=== PATIENT | female | born 1995 | race Caucasian/White ===

== ENCOUNTER 2020-02-08 03:29 | Emergency (ER) | payer OTHER, SELFPAY ==
--- NOTE | ~2020-02-08 | XR_ITS ---
EXAMINATION: XR abdomen/kub 1V INDICATION: Constipation and upper abdominal pain TECHNIQUE: Supine views of the abdomen were obtained on 2 radiographs. COMPARISON: None FINDINGS: There are no dilated loops of bowel. No free intraperitoneal gas is identified. There is a moderate volume of colonic stool. IMPRESSION: 1. No radiographic correlate for the patient's symptoms. Reviewed, dictated and finalized at location A. [employer]
--- NOTE | ~2020-02-08 | CT_ITS ---
EXAMINATION: CT abdomen pelvis w con INDICATION: Upper abdominal pain TECHNIQUE: Computed tomographic images of the abdomen and pelvis were obtained after the administrati on of 100 cc of Omnipaque 350 intravenous contrast. The dose-length product (DLP) was 1515.41 mGy-cm. Automated exposure control and iterative reconstruction technique were employed. COMPARISON: None available FINDINGS: The lung bases are clear. The heart size is normal. The liver, spleen, pancreas, and adrena l glands are normal. There is mild distention of the otherwise normal-appearing gallbladder. The kidn eys are unremarkable. No pathologically enlarged abdominal or pelvic lymph nodes are identified. Ther e is no free intraperitoneal gas or evidence of bowel obstruction. The appendix is normal. IMPRESSION: 1. Mild gallbladder distention of unclear significance, otherwise unremarkable examination. Consider right upper quadrant ultrasound. Reviewed, dictated and finalized at location A. SEWER
[2020-02-08 03:35] VITALS: BP 156/100; PULSE 94; RESP 14; TEMP 36.8; O2SAT 100
--- NOTE | 2020-02-08 03:45 | ED.ABDPAIN ---
HPI - Abdominal Pain General Chief Complaint: Abdominal Pain Stated Complaint: belly pain Time Seen by Provider: 02/08/20 03:45 History of Present Illness HPI narrative: Severe constant abdominal pain since 2100 last night. Associated with nausea and vomiting x1. She also feels constipaed. Sh has had simiar symtppoms in the past, but they usually resolve on their own. She tried tylenol without relief. Related Data Allergies Allergy/AdvReac Type Severity Reaction Status Date / Time No Known Allergies Allergy Verified 02/18/20 12:13 Review of Systems Review of Systems: All systems reviewed & are unremarkable except as noted in HPI and below Constitutional: Constitutional: Denies chills and Denies fever(s) Cardiovascular: Cardiovascular: Denies chest pain Respiratory: Respiratory: Denies dyspnea Gastrointestinal: Gastrointestinal: Reports abdominal pain, Reports constipation, Reports nausea and Reports vomiting Genitourinary: Genitourinary: Denies hematuria, Denies nocturia and Denies dysuria Musculoskeletal: Musculoskeletal: Denies back pain Neurologic: Denies numbness and Denies weakness [facility] Past Medical History Medical History (Updated 02/09/20 @ 00:00 by Carolyn Avila) Healthy adult Social History Social History (Updated 02/08/20 @ 03:59 by Brett Jeffery MD) Smoking status: Never smoker Gender identity (if verbalized by the patient): Female Exam Const: General: healthy appearing, no acute distress and alert Nutritional Appearance: obese Orientation/consciousness: patient oriented x3 HENMT: Head: normal to inspection Neck: Neck: normal visual inspection and no lymphadenopathy Chest: Chest palpation & inspection: no tenderness Resp: Effort & Inspection: normal respiratory effort Auscultation: clear to auscultation bilaterally, no rales, no rhonchi and no wheezes Cardio: Jugular venous distension: no JVD Rate: regular rate Rhythm: regular rhythm Heart sounds: no murmurs GI: Inspection: non-distended GI Palp: Yes Soft to palpation, Yes Tenderness to palpation present (GI) (epigastric), No Guarding due to palpation present (GI) and No Rebound tenderness present Auscultation: normal bowel sounds Skin: General skin exam: normal color Neuro: General: patient oriented x3 and moves all extremities Speech: normal speech Extrem: General: no edema Psych: Appearance: well kempt Affect: normal affect Course Vital Signs Vital signs: Vital Signs Temperature 36.8 C 02/08/20 03:35 Pulse Rate 94 02/08/20 03:35 Respiratory Rate 14 02/08/20 03:35 Blood Pressure 156/100 H 02/08/20 03:35 Pulse Oximetry 100 02/08/20 03:35 Temperature 36.8 C 02/08/20 03:35 Pulse Rate 84 02/08/20 07:24 Respiratory Rate 16 02/08/20 07:24 Blood Pressure 132/92 H 02/08/20 07:24 Pulse Oximetry 98 02/08/20 07:24 MDM - Abdominal Pain MDM Narrative Medical decision making narrative: DD: GERD, constipation, biliary colic, other Exam benign. I will obtain KUB, labs, and reassess Medical Records Attestation: I reviewed the patient's medical records. Lab Data Attestation: I reviewed the patient's lab results. Result diagrams: 02/08/20 03:53 02/08/20 05:43 Labs: Lab Results 02/08/20 02/08/20 02/08/20 Range/Units 03:53 03:53 05:43 WBC 13.0 H (4.5-10.0) K/mm3 RBC 4.82 (4.2-5.4) M/mm3 Hgb 13.0 (12.0-15.0) g/dL Hct 40.2 (37.0-47.0) % MCV 83.4 (80-100) fl MCH 27.0 (26-34) pg MCHC 32.3 (32-36) g/dl RDW 14.1 (11.5-14.5) % Plt Count 390 H (150-375) k/mm3 MPV 10.1 (7.4-10.4) fl Immature Gran % (Auto) 0.2 (0-0.5) % Neut % (Auto) 77.8 H (45.5-73.1) % Lymph % (Auto) 16.6 L (18.3-44.2) % [place] % (Auto) 3.7 (2.6-8.5) % Eos % (Auto) 1.3 (0-4.4) % Baso % (Auto) 0.4 (0.2-1.2) % Lymph # (Auto) 2.15 (0.9-3.2) K/mm3 [place] # (Auto) 0.5 (0.1-0.6) K/mm3 Eos # (Auto
--- NOTE | 2020-02-08 04:03 | PC.NURSE ---
Pt. to XR
[2020-02-08 04:11] LABS: Basophils Absolute Auto 0.1 K/mm3 (0.0-0.1); Basophils Percent Auto 0.4 % (0.2-1.2); Eosinophils Absolute Auto 0.2 K/mm3 (0-0.3); Eosinophils Percent Auto 1.3 % (0-4.4); Hematocrit 40.2 % (37.0-47.0); Immature Granulocyte Absolute 0.03 K/mm3 (0.00-0.031); Immature Granulocyte Percent A 0.2 % (0-0.5); Lymphocytes Absolute Auto 2.15 K/mm3 (0.9-3.2); Lymphocytes Percent Auto 16.6 % (18.3-44.2); Mean Corpuscular HGB Conc 32.3 g/dl (32-36); Mean Corpuscular Volume 83.4 fl (80-100); Mean Platelet Volume 10.1 fl (7.4-10.4); Monocytes Absolute Auto 0.5 K/mm3 (0.1-0.6); Monocytes Percent Auto 3.7 % (2.6-8.5); Neutrophils Absolute Auto 10.1 K/mm3 (1.3-6.7); Neutrophils Percent Auto 77.8 % (45.5-73.1); Platelet Count Result 390 k/mm3 (150-375); Red Blood Count 4.82 M/mm3 (4.2-5.4); Red Cell Distribution Width 14.1 % (11.5-14.5)
[2020-02-08] MEDS: METOCLOPRAMIDE HCL INJ 10 MG/2 ML VIAL IV PUSH (04:11)
[2020-02-08 04:16] LABS: Add Urine Microscopic? YES; Appearance Urine Clear (Clear); Bacteria Urine Trace /hpf; Bilirubin Urine Negative (Negative); Blood Urine 1+ (Negative); Color Urine Yellow (Yellow); Glucose Urine UA Negative (Negative); Ketones Urine Trace mg/dL (Negative); Leukocyte Esterase Ur Negative LEU/UL (Negative); Mucus Urine Rare /lpf; Nitrate Urine Negative (Negative); Protein Urine 1+ mg/dL (Negative); Squamous Epithelial Cell Urine Moderate /hpf (Few); Urobilinogen Urine Negative mg/dL (<2.0); WBC Urine 0-3 /hpf
[2020-02-08 04:37] LABS: Specific Grav Ur 1.033 (1.001-1.035)
[2020-02-08 06:11] LABS: Alanine Aminotransferase 16 U/L (4-35); Albumin Level 4.4 g/dL (3.5-5.1); Alkaline Phosphatase 96 U/L (38-126); Anion Gap 9 mmol/L (8-16); Aspartate Amino Transferase 25 U/L (14-36); Bilirubin,Total 0.2 mg/dL (0.2-1.3); Blood Urea Nitrogen 7 mg/dL (7-17); Calcium 9.3 mg/dL (8.4-10.2); Carbon Dioxide 26 mmol/L (22-30); Chloride 104 mmol/L (98-107); Estimated Glomerular Filt Rate > 60; Glucose 139 mg/dL (65-105); Lipase 84 U/L (23-300); Potassium 4.3 mmol/L (3.4-5.0); Sodium 139 mmol/L (137-145)
[2020-02-08 06:30] VITALS: BP 141/111; PULSE 102; RESP 15; O2SAT 100
[2020-02-08 07:24] VITALS: BP 132/92; PULSE 84; RESP 16; O2SAT 98
--- NOTE | 2020-02-18 12:17 | ED.ABDPAIN ---
HPI - Abdominal Pain General Chief Complaint: Abdominal Pain Stated Complaint: belly pain Time Seen by Provider: 02/08/20 03:45 Related Data Allergies Allergy/AdvReac Type Severity Reaction Status Date / Time No Known Allergies Allergy Verified 02/18/20 12:13 [facility] Past Medical History Medical History (Updated 02/09/20 @ 00:00 by Carolyn Avila) Healthy adult Social History Social History (Updated 02/08/20 @ 03:59 by Brett Jeffery MD) Smoking status: Never smoker Gender identity (if verbalized by the patient): Female Course Vital Signs Vital signs: Vital Signs Temperature 36.8 C 02/08/20 03:35 Pulse Rate 94 02/08/20 03:35 Respiratory Rate 14 02/08/20 03:35 Blood Pressure 156/100 H 02/08/20 03:35 Pulse Oximetry 100 02/08/20 03:35 Temperature 36.8 C 02/08/20 03:35 Pulse Rate 84 02/08/20 07:24 Respiratory Rate 16 02/08/20 07:24 Blood Pressure 132/92 H 02/08/20 07:24 Pulse Oximetry 98 02/08/20 07:24 MDM - Abdominal Pain Lab Data Result diagrams: 02/08/20 03:53 02/08/20 05:43 Labs: Lab Results 02/08/20 02/08/20 02/08/20 Range/Units 03:53 03:53 05:43 WBC 13.0 H (4.5-10.0) K/mm3 RBC 4.82 (4.2-5.4) M/mm3 Hgb 13.0 (12.0-15.0) g/dL Hct 40.2 (37.0-47.0) % MCV 83.4 (80-100) fl MCH 27.0 (26-34) pg MCHC 32.3 (32-36) g/dl RDW 14.1 (11.5-14.5) % Plt Count 390 H (150-375) k/mm3 MPV 10.1 (7.4-10.4) fl Immature Gran % (Auto) 0.2 (0-0.5) % Neut % (Auto) 77.8 H (45.5-73.1) % Lymph % (Auto) 16.6 L (18.3-44.2) % [place] % (Auto) 3.7 (2.6-8.5) % Eos % (Auto) 1.3 (0-4.4) % Baso % (Auto) 0.4 (0.2-1.2) % Lymph # (Auto) 2.15 (0.9-3.2) K/mm3 [place] # (Auto) 0.5 (0.1-0.6) K/mm3 Eos # (Auto) 0.2 (0-0.3) K/mm3 Baso # (Auto) 0.1 (0.0-0.1) K/mm3 Abs Immat Gran (auto) 0.03 (0.00-0.031) K/mm3 Absolute Neuts (auto) 10.1 H (1.3-6.7) K/mm3 Absolute Nucleated RBC 0.0 (0.0-0.012) K/mm3 Nucleated RBC % 0.0 (0.0-0.2) % Sodium 139 (137-145) mmol/L Potassium 4.3 (3.4-5.0) mmol/L Chloride 104 (98-107) mmol/L Carbon Dioxide 26 (22-30) mmol/L Anion Gap 9 (8-16) mmol/L BUN 7 (7-17) mg/dL Creatinine 0.70 (0.7-1.0) mg/dL Estim Creat Clear Calc Not Reportable Estimated GFR > 60 (59 - ) Glucose 139 H (65-105) mg/dL Calcium 9.3 (8.4-10.2) mg/dL Total Bilirubin 0.2 (0.2-1.3) mg/dL AST 25 (14-36) U/L ALT 16 (4-35) U/L Alkaline Phosphatase 96 (38-126) U/L Total Protein 8.0 (6.3-8.2) g/dL Albumin 4.4 (3.5-5.1) g/dL Lipase 84 (23-300) U/L Urine Color Yellow (Yellow) Urine Appearance Clear (Clear) Urine pH 6.0 (5.0-9.0) Ur Specific [place] 1.033 (1.001-1.035) Urine Protein 1+ H (Negative) mg/dL Urine Glucose (UA) Negative (Negative) mg/dL Urine Ketones Trace (Negative) mg/dL Ur Blood (Man) 1+ H (Negative) Urine Nitrate Negative (Negative) Urine Bilirubin Negative (Negative) Urine Urobilinogen Negative (<2.0) mg/dL Leukocyte Esterase Rfl Negative (Negative) JOSSELIN/UL Urine RBC 3-5 H (0-2) /hpf Urine WBC 0-3 /hpf Ur Squamous Epith Cells Moderate H (Few) /hpf Urine Bacteria Trace /hpf Urine Mucus Rare /lpf Imaging Data Radiologist's impression: ITS Impressions Abdomen X-Ray 02/08/20 07:26 IMPRESSION: 1. No radiographic correlate for the patient's symptoms. Abdomen/Pelvis CT 02/08/20 07:27 IMPRESSION: 1. Mild gallbladder distention of unclear significance, otherwise unremarkable examination. Consider right upper quadrant ultrasound. Discharge Plan Discharge Clinical Impression: Biliary colic Patient Disposition: Home, Self-Care Condition: Stable Instructions: Antibiotic Form, Biliary Colic (ED), Low Fat Diet (ED) Prescriptions: New hydroc
== END 2020-02-08 07:26 | disposition home or self-care (01) ==
PROVIDERS: Emergency Provider Emergency Medicine; PCP Family Medicine
DX: K80.50 Calculus of bile duct without cholangitis or cholecystitis without obstruction (principal)
CPT/HCPCS: 36415; 74018; 74177; 80053; 81001; 81025; 83690; 85025; 96374; 99284; A9270; J2765; Q9967

== ENCOUNTER 2020-02-18 11:55 | Day surgery (SDC) | payer OTHER, SELFPAY ==
[2020-02-18] VITALS (10 sets, daily range): BP systolic 127–156; BP diastolic 85–111; PULSE 96–122; RESP 17–21; TEMP 36.3–37.8; O2SAT 93–100
--- NOTE | ~2020-02-18 | US_ITS ---
EXAMINATION: US right upper quadrant DATE: 02/18/2020 14:49 INDICATION: Right upper quadrant abdominal pain. Nausea. TECHNIQUE: Multiple grayscale and Doppler ultrasound images of the abdomen were obtained. COMPARISON: CT abdomen and pelvis 02/08/2020 FINDINGS: There is diffuse hepatic steatosis. No liver surface nodularity. The gallbladder is distend ed and contains gallstones. Gallbladder wall thickening is noted. There was a positive sonographic Mu rphy sign. The common duct is not identified, but was normal in size on the recent CT. The visualized portions of the head and body of the pancreas are normal. IMPRESSION: 1. Acute cholecystitis. Reviewed, dictated and finalized at location A. [facility] [employer] IMPRESSION: 1. Acute cholecystitis.
--- NOTE | 2020-02-18 12:49 | ED.ABDPAIN ---
HPI - Abdominal Pain General Chief Complaint: Abdominal Pain Stated Complaint: gallbladder attack Time Seen by Provider: 02/18/20 12:05 History of Present Illness HPI narrative: 25 yo female presents to the ED for abdominal pain. The pain is intermittent. RUQ. Associated wtih nausea. Worse at night. Nearly constant for the past 3 days. I personally saw her 10 days ago. Labs were unremarkable. CT showed nonspecific gall bladder distension. I discharged her with a presumed diagnosis of biliary colic. She has an upcoming appointment with surgery. She had an US done today, but no results available. She came back in now because the pain is worse and she has run out of pain medications. Related Data Home Medications Medication Instructions Recorded Confirmed norgestimate-ethinyl estradiol 1 tablet PO DAILY 02/18/20 [[place] (28)] Allergies Allergy/AdvReac Type Severity Reaction Status Date / Time No Known Allergies Allergy Verified 02/18/20 12:13 Review of Systems Review of Systems: All systems reviewed & are unremarkable except as noted in HPI and below Constitutional: Constitutional: Denies fever(s) Cardiovascular: Cardiovascular: Denies chest pain Respiratory: Respiratory: Denies dyspnea Gastrointestinal: Gastrointestinal: Reports abdominal pain and Reports nausea Genitourinary: Genitourinary: Denies dysuria Neurologic: Denies dizziness and Denies weakness PMFSH Past Medical History Medical History Morbid obesity with BMI of 40.0-44.9, adult Surgical History Surgical History Hx of wisdom tooth extraction Family History Family History Mother Gallbladder disease Social History Social History Smoking status: Never smoker Gender identity (if verbalized by the patient): Female Exam Const: General: no acute distress, alert and ill appearing Nutritional Appearance: obese Orientation/consciousness: patient oriented x3 HENMT: Head: normal to inspection Resp: Effort & Inspection: normal respiratory effort Auscultation: clear to auscultation bilaterally Cardio: Rate: regular rate Rhythm: regular rhythm GI: GI Palp: Yes Soft to palpation and Yes Tenderness to palpation present (GI) (RUQ) Skin: General skin exam: normal color Neuro: General: patient oriented x3 and moves all extremities Speech: normal speech Extrem: General: normal to inspection Course Vital Signs Vital signs: Vital Signs Temperature 36.9 C 02/18/20 12:04 Pulse Rate 122 H 02/18/20 12:04 Respiratory Rate 18 02/18/20 12:04 Blood Pressure 140/111 H 02/18/20 12:04 Pulse Oximetry 98 02/18/20 12:04 Temperature 37.8 C H 02/18/20 15:54 Pulse Rate 114 H 02/18/20 15:54 Respiratory Rate 18 02/18/20 15:54 Blood Pressure 129/87 02/18/20 15:54 Pulse Oximetry 98 02/18/20 15:54 MDM - Abdominal Pain Lab Data Attestation: I reviewed the patient's lab results. Result diagrams: 02/18/20 13:14 02/18/20 15:07 Labs: Lab Results 02/18/20 02/18/20 Range/Units 13:14 15:07 WBC 15.0 H (4.5-10.0) K/mm3 RBC 5.12 (4.2-5.4) M/mm3 Hgb 13.7 (12.0-15.0) g/dL Hct 42.3 (37.0-47.0) % MCV 82.6 (80-100) fl MCH 26.8 (26-34) pg MCHC 32.4 (32-36) g/dl RDW 13.6 (11.5-14.5) % Plt Count 424 H (150-375) k/mm3 MPV 10.0 (7.4-10.4) fl Immature Gran % (Auto) 0.3 (0-0.5) % Neut % (Auto) 72.6 (45.5-73.1) % Lymph % (Auto) 17.6 L (18.3-44.2) % [place] % (Auto) 8.5 (2.6-8.5) % Eos % (Auto) 0.5 (0-4.4) % Baso % (Auto) 0.5 (0.2-1.2) % Lymph # (Auto) 2.64 (0.9-3.2) K/mm3 [place] # (Auto) 1.3 H (0.1-0.6) K/mm3 Eos # (Auto) 0.1 (0-0.3) K/mm3 Baso # (Auto) 0.1 (0.0-0.1) K/mm3 Abs Immat Gran
[2020-02-18] MEDS: ONDANSETRON INJ 4 MG/2 ML VIAL IV PUSH ×2 (13:17→19:03)
[2020-02-18 13:19] LABS: Basophils Absolute Auto 0.1 K/mm3 (0.0-0.1); Basophils Percent Auto 0.5 % (0.2-1.2); Eosinophils Absolute Auto 0.1 K/mm3 (0-0.3); Eosinophils Percent Auto 0.5 % (0-4.4); Hematocrit 42.3 % (37.0-47.0); Hemoglobin 13.7 g/dL (12.0-15.0); Immature Granulocyte Absolute 0.04 K/mm3 (0.00-0.031); Immature Granulocyte Percent A 0.3 % (0-0.5); Lymphocytes Absolute Auto 2.64 K/mm3 (0.9-3.2); Lymphocytes Percent Auto 17.6 % (18.3-44.2); Mean Corpuscular HGB Conc 32.4 g/dl (32-36); Mean Corpuscular Hemoglobin 26.8 pg (26-34); Mean Corpuscular Volume 82.6 fl (80-100); Monocytes Absolute Auto 1.3 K/mm3 (0.1-0.6); Monocytes Percent Auto 8.5 % (2.6-8.5); Neutrophils Absolute Auto 10.9 K/mm3 (1.3-6.7); Neutrophils Percent Auto 72.6 % (45.5-73.1); Platelet Count Result 424 k/mm3 (150-375); Red Blood Count 5.12 M/mm3 (4.2-5.4); Red Cell Distribution Width 13.6 % (11.5-14.5)
[2020-02-18 15:25] LABS: Alanine Aminotransferase 46 U/L (4-35); Alkaline Phosphatase 113 U/L (38-126); Anion Gap 13 mmol/L (8-16); Aspartate Amino Transferase 41 U/L (14-36); Bilirubin,Total 0.7 mg/dL (0.2-1.3); Blood Urea Nitrogen 5 mg/dL (7-17); Calcium 9.2 mg/dL (8.4-10.2); Carbon Dioxide 22 mmol/L (22-30); Chloride 101 mmol/L (98-107); Estimated CRCL calculation 163 ml/min; Estimated Glomerular Filt Rate > 60; Glucose 90 mg/dL (65-105); Potassium 4.3 mmol/L (3.4-5.0); Sodium 136 mmol/L (137-145)
--- NOTE | 2020-02-18 15:26 | WPDANESEPPF ---
Anes - Initial Pre Proc Eval Procedure: Operation Date: 02/18/20 15:30 Proposed Procedures p Laparoscopic Cholecystectomy, Possible Open - Johnny Fletcher DO Date/Time: 02/18/20 15:26 Surgeon: Jonhny Fletcher DO Pre Op Diagnosis: gallbladder attack Patient Data Age: 25 Gender: F Height: 1.68 m Weight: 122.4 kg Last Vital Signs Temp 36.9 C 02/18/20 12:04 Pulse 100 02/18/20 15:02 Resp 17 02/18/20 15:02 BP 156/107 H 02/18/20 15:02 Pulse Ox 96 02/18/20 15:02 Allergies Allergy/AdvReac Type Severity Reaction Status Date / Time No Known Allergies Allergy Verified 02/18/20 12:13 Home Medications Medication Instructions Recorded Confirmed Type hydrocodone-acetaminophen [[place]] 1 tablet PO Q6H PRN #15 tablet 02/08/20 Rx norgestimate-ethinyl estradiol 1 tablet PO DAILY 02/18/20 History [[place] (28)] Laboratory Tests 02/18/20 02/18/20 13:14 15:07 WBC 15.0 K/mm3 H K/mm3 (4.5-10.0) RBC 5.12 M/mm3 M/mm3 (4.2-5.4) Hgb 13.7 g/dL g/dL (12.0-15.0) Hct 42.3 % % (37.0-47.0) MCV 82.6 fl fl (80-100) MCH 26.8 pg pg (26-34) MCHC 32.4 g/dl g/dl (32-36) RDW 13.6 % % (11.5-14.5) Plt Count 424 k/mm3 H k/mm3 (150-375) MPV 10.0 fl fl (7.4-10.4) Immature Gran % (Auto) 0.3 % % (0-0.5) Neut % (Auto) 72.6 % % (45.5-73.1) Lymph % (Auto) 17.6 % L % (18.3-44.2) [place] % (Auto) 8.5 % % (2.6-8.5) Eos % (Auto) 0.5 % % (0-4.4) Baso % (Auto) 0.5 % % (0.2-1.2) Lymph # (Auto) 2.64 K/mm3 K/mm3 (0.9-3.2) [place] # (Auto) 1.3 K/mm3 H K/mm3 (0.1-0.6) Eos # (Auto) 0.1 K/mm3 K/mm3 (0-0.3) Baso # (Auto) 0.1 K/mm3 K/mm3 (0.0-0.1) Abs Immat Gran (auto) 0.04 K/mm3 H K/mm3 (0.00-0.031) Absolute Neuts (auto) 10.9 K/mm3 H K/mm3 (1.3-6.7) Absolute Nucleated RBC 0.0 K/mm3 K/mm3 (0.0-0.012) Nucleated RBC % 0.0 % % (0.0-0.2) Sodium 136 mmol/L L mmol/L (137-145) Potassium 4.3 mmol/L mmol/L (3.4-5.0) Chloride 101 mmol/L mmol/L (98-107) Carbon Dioxide 22 mmol/L mmol/L (22-30) Anion Gap 13 mmol/L mmol/L (8-16) BUN 5 mg/dL L mg/dL (7-17) Creatinine 0.60 mg/dL L mg/dL (0.7-1.0) Estim Creat Clear Calc 163 ml/min ml/min Estimated GFR > 60 (59 - ) Glucose 90 mg/dL mg/dL (65-105) Calcium 9.2 mg/dL mg/dL (8.4-10.2) Total Bilirubin 0.7 mg/dL mg/dL (0.2-1.3) AST 41 U/L H U/L (14-36) ALT 46 U/L H U/L (4-35) Alkaline Phosphatase 113 U/L U/L (38-126) Total Protein 8.0 g/dL g/dL (6.3-8.2) Albumin 4.0 g/dL g/dL (3.5-5.1) Patient hx anesthesia problems: none Family hx anesthesia problems: none [facility] Past Medical History Medical History (Updated 02/18/20 @ 15:29 by Ronen Salazar MD) Morbid obesity with BMI of 40.0-44.9, adult Social History Social History (Updated 02/08/20 @ 03:59 by Brett Jeffery MD) Smoking status: Never smoker Gender identity (if verbalized by the patient): Female Anes - Eval Final PreProcedure Day of Procedure 02/18/20 15:26 Patient weight: morbidly obese Heart: regular rate and rhythm Lungs: clear to auscultation and normal air movement Airway: Mallampati scale class II Neurological: alert and oriented Last oral intake: >/= 8 hours ASA classification: III Emergent: no Anesthetic plan: proceed Anesthesia type and monitoring: general ETT Informed Consent: The patient's anesthetic plan and its attendant risks and benefits were discussed with the patient/family/POA. Questions were solicited and answers provided to the satisfaction of the patient/family/POA.
--- NOTE | 2020-02-18 15:27 | PM.IMHP ---
H&P: HPI History of Present Illness Date/Time: 02/18/20 15:27 Chief complaint: gallbladder attack Narrative: Brissa Phillips is a 25 year old female who presented to the ED with constant RUQ pain for the past week. She originally went to the ED on 02/07 and was worked up with a CT abd/pelvis. Gallbladder distention was noted but no other abnormalities seen. She improved after a few days, but then ate a flatbread and had recurrent symptoms that have been constant. She has nausea and vomiting but no fevers or chills. She went for an outpatient u/s at [facility] today but doesn't have the results yet. Review of Systems Review of Systems: All systems reviewed & are unremarkable except as noted in HPI and below Constitutional: Constitutional: Denies chills, Denies fever(s), Denies headache(s) and Denies weight loss Eyes: Eyes: Denies change in vision ENT: Denies dizziness, Denies headache(s), Denies neck mass and Denies throat swelling Cardiovascular: Cardiovascular: Denies chest pain, Denies lightheadedness and Denies dyspnea Respiratory: Respiratory: Denies cough, Denies dyspnea and Denies wheezing Gastrointestinal: Gastrointestinal: Reports as per HPI, Reports abdominal pain, Reports nausea and Reports vomiting Genitourinary: Genitourinary: Denies hematuria and Denies dysuria Musculoskeletal: Musculoskeletal: Reports as per HPI Integumentary/Breasts: Skin/Breast: Reports as per HPI Neurologic: Denies dizziness and Denies headache(s) Allergic/Immunologic: Allergic/Immunologic: Denies throat swelling and Denies wheezing PMFSH Past Medical History Medical History Morbid obesity with BMI of 40.0-44.9, adult Surgical History Surgical History Hx of wisdom tooth extraction Family History Family History Mother Gallbladder disease Social History Social History Smoking status: Never smoker Gender identity (if verbalized by the patient): Female Meds Home Medications and Allergies Home Medications Medication Instructions Recorded Confirmed Type hydrocodone-acetaminophen [[place]] 1 tablet PO Q6H PRN #15 tablet 02/08/20 Rx norgestimate-ethinyl estradiol 1 tablet PO DAILY 02/18/20 History [[place] (28)] Allergies Allergy/AdvReac Type Severity Reaction Status Date / Time No Known Allergies Allergy Verified 02/18/20 12:13 Vital Signs Vital Signs - 24 hr 02/18/20 12:04 02/18/20 15:02 Temperature 36.9 C Pulse Rate 122 H 100 Respiratory Rate 18 17 Blood Pressure 140/111 H 156/107 H Pulse Oximetry 98 96 Exam Const: General: no acute distress and alert Orientation/consciousness: patient oriented x3 HENMT: Head: normocephalic and atraumatic Ears: hearing grossly normal bilaterally General nose exam: Normal nares present Mouth: Yes Normal oral and palatal mucosa present Eyes: Periorbital: periorbital findings normal Sclera: sclerae normal EOM: EOMs intact bilaterally Neck: Neck: normal visual inspection, no lymphadenopathy and trachea midline Chest: Chest palpation & inspection: normal inspection of the chest Resp: Effort & Inspection: normal respiratory effort Auscultation: clear to auscultation bilaterally Cardio: Jugular venous distension: no JVD Rate: regular rate Rhythm: regular rhythm Heart sounds: S1 normal heart sound present and S2 normal heart sound present Peripheral pulses: Peripheral pulses 2+ throughout GI: Inspection: obesity GI Palp: Yes abdominal tenderness, Yes Soft to palpation, Yes Tenderness to palpation present (GI) (RUQ), No Guarding due to palpation present (GI) and No Rebound tenderness present Percussion: Yes normal to percussion Auscultation: normal bowel sounds : General: Yes no CVA tenderness Back/Spine/Pel
--- NOTE | 2020-02-18 15:39 | WPDHPUPDATE1 ---
History and Physical Update Update Date/Time: 02/18/20 15:39 History and Physical has been reviewed, including an updated exam of the patient. There are NO changes in the patient's condition. Risks, benefits, and alternatives have been discussed and questions answered. Patient agrees to proceed with procedure.
[2020-02-18] MEDS: LACTATED RINGERS 1,000 ML 30 ML IV CONT ×2 (16:00→17:45)
[2020-02-18] MEDS: ceFAZolin 3 GM/D5W 100 ML 100 ML IVPB (16:22)
--- NOTE | 2020-02-18 17:31 | PM.PROC ---
Procedure Note - Detailed Date of procedure: 02/18/20 Pre-op diagnosis: Acute calculous cholecystitis Post-op diagnosis: same Procedure performed: Laparoscopic Cholecystectomy Description of procedure: Procedure as well as risks, benefits, and alternatives were discussed with patient. Written consent was obtained and placed in chart prior to procedure. The patient was brought back to surgical suite. Patient was placed in supine position on operating table. Time-out was done to confirm patient and procedure. Patient was then intubated by the anesthesia department. Abdomen was prepped and draped in sterile fashion using chlorhexidine prep. 0.5% bupivacaine with epinephrine was infiltrated at each site of incision. A 5 millimeter incision was made near the umbilicus, and a 5 millimeter Optiview trocar was advanced through the abdominal layers under direct visualization. Once inside the abdominal cavity, carbon dioxide was insufflated to create a pneumoperitoneum. The camera was inserted and the abdomen was inspected. No immediate abnormalities were identified. The patient was placed in reverse Trendelenburg position and rotated slightly to the left. An 11 millimeter incision was made in the subxiphoid region, and an 11 millimeter trocar was inserted under direct visualization. Two 5 millimeter incisions were made in the right upper quadrant, and two 5 millimeter trocars were inserted under direct visualization. The gallbladder was identified and grasped at the fundus and retracted superiorly. It was then grasped at the infundibulum retracted laterally. Careful dissection around the neck of the gallbladder was performed using blunt dissection with a [place] grasper and hook electrocautery. The cystic duct was identified, and a window was created behind it. The cystic artery was also identified and a window was created behind it. The critical view of safety was identified, visualizing the cystic duct running directly into the neck of the gallbladder, and the cystic artery running directly into the wall of the gallbladder. A 5 millimeter clip rent control office manager was then used to place 2 clips proximally and 1 clip distally on both the cystic duct and cystic artery. They were then both transected using endoscopic scissors. Once safely away from the kyle hepatitis, the gallbladder was dissected free from the liver bed using hook electrocautery. Hemostasis was achieved along the way. The gallbladder was removed completely and then removed through the subxiphoid port. The liver bed was then inspected. Hemostasis appeared adequate, and our clips appeared secure. The area was gently irrigated with sterile saline. No other abnormalities were seen. The patient was flattened out in bed, and 1 final inspection was made around the abdominal cavity. The subxiphoid port was removed, and a Jose Maksim cone was used to approximate the fascia with an 0-Vicryl simple interrupted suture. The remaining ports were then removed under direct visualization, the camera was removed, and the pneumoperitoneum was released. The skin of the incisions was approximated using 4-0 Monocryl subcuticular sutures. Exofin glue was applied on top. The patient was then awakened from anesthesia, extubated, and transferred to recovery. Anesthesia: GETA and local (0.25% bupivicaine with epi) Surgeon: Johnny Fletcher DO Estimated blood loss (mL): 20 Drains: No Packing: No Pathology: yes Complications: No immediate complications Condition: stable (Patient tolerated procedure well, and is currently resting comfortably in recovery.) Disposition: same day Findings: Laparoscopic cholecystectomy was performed. The gallbladder was very tense and dilated upon entry into the abdomen. A laparoscopic aspirating needle was used to aspirate about 100 mL of thick dark bile. The gallbladder wall was thickened and hyperemic. The cystic duct appeared normal in size, but there was a stone measuring approxima
[2020-02-18] MEDS: fentaNYL CITRATE INJ (*CRX) 100 MCG/2 ML VIAL 25 MCG IV PUSH ×2 (18:18→18:47)
== END 2020-02-18 19:38 | disposition home or self-care (01) ==
LOC: ANHED 15:16 → ANHSURGERY 15:25
PROVIDERS: Emergency Provider Emergency Medicine; Visit Provider Surgery
PROC: 0FT44ZZ Resection of Gallbladder, Percutaneous Endoscopic Approach (ICD-10-PCS; CPT 47562; principal; 2020-02-18 15:30)
DX: K80.00 Calculus of gallbladder with acute cholecystitis without obstruction (principal); E66.01 Morbid (severe) obesity due to excess calories; Z68.41 Body mass index [BMI] 40.0-44.9, adult
CPT/HCPCS: 47562; 36415; 76705; 80053; 81025; 85025; 88304; 96374; 96375; 99285; J0330; J0690; J1100; J2250; J2405; J2704; J2710; J3010; J7030; J7120